=== PATIENT | male | born 1965 | race African-American/Black ===

== ENCOUNTER 2017-07-09 14:53 | Observation (INO) ==
[2017-07-09] MEDS ORDERED: ASPIRIN 325 MG TABLET PO STA (15:02)
[2017-07-09] MEDS ORDERED: NITROGLYCERIN SL 0.4 MG TABLET SL PRN (15:02)
[2017-07-09] MEDS ORDERED: ENOXAPARIN 100 MG/ML SYRINGE SUBCUT STA (15:02)
[2017-07-09] MEDS ORDERED: ASPIRIN 325 MG TABLET ONE (15:09)
[2017-07-09] MEDS ORDERED: ENOXAPARIN 100 MG/ML SYRINGE SUBCUT ONE (15:09)
[2017-07-09 15:35] LABS: Basophils % 0.4 % (0.0-0.8); Eosinophils # 0.2 10*3/uL (0.0-0.87); Hematocrit 42.2 VOL% (42.0-52.0); Hemoglobin 14.6 GM/DL (14.0-18.0); Immature Granulocytes % 0.4 %; Immature Granulocytes Absolute 0.04 #; Lymphocytes % 29.6 % (21.2-54.2); Mean Corpuscular HGB Conc 34.6 GM/DL (32-36); Mean Corpuscular Hemoglobin 28 PG (27-34); Mean Corpuscular Volume 80.5 FL (87-102); Mean Platelet Volume 10.3 FL (9.6-12.0); Monocytes # 1.2 10*3/uL (0.11-0.8); Monocytes % 11.3 % (1.7-12.7); Neutrophils # 5.7 10*3/uL (1.4-7.4); Neutrophils % 56.3 % (38.7-73.9); Platelet Count 252 T/CUMM (130-400); Red Blood Count 5.24 MC/CUMM (3.8-5.5); Red Cell Distribution Width 13.1 % (9.3-17.3); White Blood Count 10.2 T/CUMM (4-12)
--- NOTE | 2017-07-09 15:43 | XRay Report ---
XR chest 1V portable Indication: Chest pain. Comparison: Chest x-ray April 09, 2017 Technique: Portable AP chest was performed. Findings: Heart size is borderline. This finding is likely accentuated by the degree of inspiration and AP technique. Pulmonary vasculature appears within normal limits. No significant abnormality of the mediastinal contours demonstrated. Lungs are clear. Bones and soft tissues demonstrate no significant abnormalities. Impression: 1. No evidence of acute pathology. Borderline cardiomegaly. 07/09/2017 3:39 PM PROCEDURE INTERPRETED AT [facility] DEPARTMENT OF RADIOLOGY Final Report Signed by: Dr. Timbo Ferris
[2017-07-09 15:45] LABS: Albumin 3.9 G/DL (3.4-5.0); Bilirubin,Total 0.7 MG/DL (0.2-1.0); Calcium 9.1 MG/DL (8.5-10.1); Magnesium 2.2 MG/DL (1.8-2.4); Osmolality,Calculated 279.7 MOS/KG (273-304)
--- NOTE | 2017-07-09 15:55 | Emergency Department Note ---
Xavier Ordoñez Hilary, am scribing for, and in the presence of, Miles Son MD 15:14. Huy Ordoñez Phillip K, MD, personally performed the services described in this documentation, ascribed by Emily Park in my presence, and it is both accurate and complete [id number] . Arrival - Arrival Chief Complaint: Chest Pain Stated Complaint: chest pain (blockage in artery) ED Nursing Triage Note: Pt c/o chest pain with some SOB started this am. Mode of Arrival: Ambulatory Limitations: No Limitations Source: Patient, RN Notes Reviewed Time Seen by Provider: 07/09/17 15:01 - History of Present Illness HPI Narrative: Pt is a 51 y/o male presenting to the ED with c/o chest pain which onset yesterday intermittently but continuous today. He reports exerting himself yesterday. Pt confirms non radiating sharp chest pain, SOB, nausea (yesterday) but denies diaphoresis. He also states that he has "clogged arteries" and is on medication for it and had a stress test 4 months. Pt has a PMHx of HTN, Dyslipidemia and NIDDM. No other complaints or problems stated in the ED. patient had an abnormal stress thallium here 3-4 months ago while hospitalized for chest pain. He has never had a heart catheterization. Patient is pain- free at the present time. Patient does have some EKG Changes inferiorly which he did not have previously. Patient had chest pain while having sex yesterday. Onset (ago): hour(s) Consistency: constant, intermittent Severity: moderate Severity scale (1-10): 3 Quality: sharp Allergies/Adverse Reactions: Allergies Allergy/AdvReac Type Severity Reaction Status Date / Time No Known Allergies Allergy Verified 12/09/16 17:44 Home Medications: Home Medications Medication Instructions Recorded Confirmed Type Amlodipine Besylate 10 mg PO DAILY 06/13/16 02/13/17 History Aspirin EC Tab 81 mg PO DAILY 06/13/16 02/13/17 History FLUoxetine [PROzac] 20 mg PO QAM 06/13/16 02/13/17 History Glimepiride 4 mg PO BID 06/13/16 02/13/17 History Metformin HCl 1,000 mg PO BID W/MEALS 06/13/16 02/13/17 History Atorvastatin [Lipitor] 40 mg PO BEDTIME 12/09/16 02/13/17 History Linagliptin [Tradjenta] 5 mg PO DAILY 12/09/16 02/13/17 History Isosorbide Mononitrate [Imdur] 30 mg PO DAILY #30 tablet 02/15/17 Rx Metoprolol Tartrate Tab [Lopressor 50 mg PO BID #60 tablet 02/15/17 Rx Tab] Indomethacin Cap [Indocin Cap] 25 mg PO TID #30 capsule 04/09/17 Rx predniSONE TAB [PredniSONE] 20 mg PO DAILY #15 tablet 04/09/17 Rx Review of System - Review of System 12 point system: reviewed and no additional remarkable complaints except as stated - Review of System Constitutional: Absent: diaphoresis, fever Respiratory: Present: respiratory distress (SOB) Cardiovascular: Present: chest pain Gastrointestinal: Present: nausea Medical,Surgical,& Family Hx - Medical History Cardio: History of: Hypertension HEENT: History of: Eye Problem (Glaucoma) Endocrine: History of: Diabetes Mellitus (NIDDM), Dyslipidemia - Surgical History Cardiac Surgeries: Patient Denies: Cardiac Catheterization Thoracic Surgeries: Patient denies;: Organ Transplant, Lobectomy Neurologic Surgeries: Patient denies: Neurologic Surgery - Family History Family History: Reports;: Family Cancer, Family Diabetes, Family Hypertension - Social History Smoking Status: Never smoker Marital Status: Lives With:: Spouse Functional capacity: independent ambulation Exam Vital Signs: Vital Signs Temperature 97.4 F L 07/09/17 15:01 Pulse Rate 75 07/09/17 15:01 Respiratory Rate 16 07/09/17 15:01 Blood Pressure 125/86 07/09/17 15:01 O2 Sat by Pulse Oximetry 100 07/09/17 15:19 - General General appearance: alert, in no apparent distress - Head Head exam: Present: atraumatic, normocephalic - Eye Eye exam: Present: normal appearance, PERRL, EOMI - ENT ENT exam: Present: mucous membranes moist, TM's normal bilaterally. Absent: mucous membranes dry - Neck Neck exam: Present: full ROM, trachea midline. Absent: tenderness - Chest Chest inspection: Present: symmetric chest wall rise, tenderness (no chestwall tenderness but tenderness in epigastric area) - Respiratory Respiratory exam: Present: normal lung sounds bilaterally. Absent: respiratory distress - Cardiovascular Cardiovascular exam: Present: regular rate, normal rhythm, normal heart sounds. Absent: murmur, rubs, gallop - Abdominal Exam Abdominal exam: Present: soft, normal bowel sounds. Absent: distention, tenderness - Extremities Exam Extremities exam: Present: full ROM. Absent: tenderness - Back Exam Back exam: Present: full ROM. Absent: tenderness - Neurological Exam Neurological exam: Present: alert, oriented X3, CN II-XII intact. Absent: motor sensory deficit - Psychiatric Psychiatric exam: Present: normal affect, normal mood - Skin Skin exam: Present: warm, dry, intact, normal color. Absent: rash Course Course Narrative: Patient discussed with Dr. Teresa who will admit for further evaluation. Results - Labs CBC & BMP: 07/09/17 15:19 07/09/17 15:19 Lab Results: I have reviewed the patients labs Labs: Laboratory Tests 07/09/17 07/09/17 15:19 15:19 WBC 10.2 RBC 5.24 Hgb 14.6 Hct 42.2 MCV 80.5 L Plt Count 252 [place] # (Auto) 1.2 H Sodium 138 Potassium 4.0 Chloride 104 Carbon Dioxide 27 BUN 20 H Glucose 137 H AST 38 H ALT 110 H - EKG EKG results: interpreted by ERMD, sinus rhythm (Inferior ST-T changes) - Diagnostic Findings Procedure: Chest x-ray: report reviewed by me (No evidence of acute pathology. Borderline cardiomegaly) Disposition Clinical Impression: Chest pain, Unstable angina pectoris Case discussed with: patient, patient's family Disposition: Still a Patient Condition: Guarded Additional Instructions: Admit to cardiology.
[2017-07-09] MEDS ORDERED: ONDANSETRON 4 MG/2 ML VIAL IV PRN (17:28)
[2017-07-09] MEDS ORDERED: POTASSIUM CHLORIDE 20 MEQ TABLET PO PRN (17:28)
[2017-07-09] MEDS ORDERED: BISACODYL 5 MG TABLET PO PRN (17:28)
[2017-07-09] MEDS ORDERED: ZALEPLON 5 MG CAPSULE PO PRN (17:28)
[2017-07-09] MEDS ORDERED: MAGNESIUM SULF RIDER 2 GM in PREMIX 1 EACH IV PRN (17:28)
[2017-07-09 19:18] LABS: PT Patient Result 10.9 SECS
[2017-07-09] MEDS: ATORVASTATIN 40 MG TABLET PO SCH (21:42)
[2017-07-09] MEDS: INSULIN ASPART PROTAMINE/ASPART 70/30 100 UNIT/ML SUBCUT SCH (21:42)
[2017-07-09] MEDS: METOPROLOL TARTRATE 50 MG TABLET PO SCH (21:42)
[2017-07-09] MEDS: NITROGLYCERIN 2% OINT 1 INCH/GM PACK TOP SCH (21:48)
[2017-07-10] MEDS: NITROGLYCERIN 2% OINT 1 INCH/GM PACK TOP SCH ×3 (01:44→14:50)
--- NOTE | 2017-07-10 06:05 | EKG Report ---
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
--- NOTE | 2017-07-10 08:05 | Cardiology History & Physical ---
Assessment and Plan - Time spent with patient Time spent with patient: Greater than 30 minutes (1) Chest pain Status: Acute Assessment and plan: SEE PLAN OF CARE LISTED BELOW. Current Visit: Yes (2) DM2 (diabetes mellitus, type 2) Status: Chronic Assessment and plan: SEE PLAN OF CARE LISTED BELOW. 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 Current Visit: No (5) Hyperlipidemia Status: Chronic Assessment and plan: SEE PLAN OF CARE LISTED BELOW. Current Visit: No (6) Obesity Status: Chronic Assessment and plan: SEE PLAN OF CARE LISTED BELOW. 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 Stuart is a 51 year old male without known coronary artery disease, routinely followed by Dr. Alarcon. Patient has cardiac risk factors significant for hypertension, diabetes, dyslipidemia, former drug abuser (cocaine), obesity , sedentary lifestyle and family history of coronary artery disease (father). Patient was just hospitalized in February 2017. Patient underwent nuclear cardiac stress test at that time. Stress testing results were clinically positive, electrically negative. Moderate risk test. Normal LV size with wall motion abnormalities with preserved systolic function. Myocardial ischemia in the anterior cervical/apical region. No ACS at that time. Patient was discharged home, medically managed. Patient has never went underwent heart catheterization. Patient was last seen in the cardiology clinic July 01, 2017. He was a symptomatic at that time. Patient presented to [facility] yesterday with complaints of chest pain. Patient reports that his chest discomfort began Friday after having intercourse. He describes his pain as a chest tightness located midsternally. Nonradiating. Although, he does report left hand numbness at times. Unsure if this is related to his chest discomfort or not. This lasted less than 20 minutes. Relieved with rest. Associated with shortness of breath and mild nausea. Friday morning he developed chest pain again. He describes this type pain as a shooting pain. At that point, he felt that he should be further evaluated in the emergency department. Upon arrival to the ER , he was no longer experiencing chest pain. He was not given nitroglycerin per his report. He is unable to identify any specific alleviating or aggravating factors. He does report that it appears that his chest pain was triggered with exertion both instances. Patient has been admitted under cardiology's service. Housed on the telemetry unit. Patient was seen and examined on the telemetry unit. He is now without complaints of chest pain, heaviness and tightness. Chest x-ray stable. Cardiac biomarkers negative 3. EKG is abnormal. T-wave inversions noted in inferior leads. Anticipating heart catheterization today. I will keep patient n.p.o. Continue to cycle cardiac biomarkers and EKGs. Patient did receive therapeutic dose of Lovenox and full dose aspirin in the emergency department. We will continue beta-blockade, aspirin, lipid-lowering agent and Imdur. I will further discuss with Dr. Teresa and Dr. Bajwa. Further recommendations to follow. IMPRESSION AND PLAN 1. CHEST PAIN - Patient's chest pain is concerning for angina. Now chest pain -free. Patient did have abnormal stress test back in February 2017. He has been medically managed since that time. Cardiac biomarkers have been negative 3. EKG is abnormal. T-wave inversions noted in inferior leads. Anticipating heart catheterization today. I will keep patient n.p.o. Continue to cycle cardiac biomarkers and EKGs. Patient did receive therapeutic dose of Lovenox and full dose aspirin in the emergency department. We will continue beta- blockade, aspirin, lipid-lowering agent and Imdur. I will further discuss with Dr. Teresa and Aydee. Further recommendations to follow. 2. HYPERTENSION - Under well control. Continue current plan of care. 3. DYSLIPIDEMIA - Continue lipid-lowering agent. LDL 74. 4. FORMER DRUG ABUSER - Patient reports that he has done cocaine in the past. He reports that he has been in remission now for a year and a half. I will check a urine drug screen to verify. 5. DIABETES - I have added sliding scale insulin. Check blood sugars before meals and at bedtime. 6. OBESITY - Counseled patient on importance of weight loss with dietary restriction and regular exercise. Home Medications Medication Instructions Recorded Confirmed Type Amlodipine Besylate 10 mg PO QAM 06/13/16 07/09/17 History Aspirin EC Tab 81 mg PO QAM 06/13/16 07/09/17 History FLUoxetine [PROzac] 20 mg PO QAM 06/13/16 07/09/17 History Atorvastatin [Lipitor] 40 mg PO BEDTIME 12/09/16 07/09/17 History Metoprolol Tartrate Tab [Lopressor 50 mg PO BID #60 tablet 02/15/17 07/09/17 Rx Tab] Insulin Aspart Prot/Insuln Asp 60 units SUBCUT BID 07/09/17 07/09/17 History [NovoLOG Mix 70-30 FlexPen] Isosorbide Mononitrate [Isosorbide 30 mg PO QAM 07/09/17 07/09/17 History Mononitrate ER] Allergies Allergy/AdvReac Type Severity Reaction Status Date / Time No Known Allergies Allergy Verified 12/09/16 17:44 - Constitutional Constitutional: Present: as per HPI. Absent: chills, daytime sleepiness, excessive sweating, fatigue, fever(s), frequent falls, weakness, weight gain, weight loss - Cardiovascular Cardiovascular: Present: as per HPI, chest pain with activity, dyspnea, radiating jaw, neck or arm pain. Absent: claudication, diaphoresis, dyspnea on exertion, edema, lightheadedness, orthopnea, palpitations, PND - Respiratory Respiratory: Present: as per HPI, dyspnea. Absent: cough, hemoptysis, dyspnea on exertion, wheezing, snoring, pain on inspiration, change in phlegm color - Gastrointestinal Gastrointestinal: Present: as per HPI, nausea. Absent: heartburn, hematemesis, hematochezia, loose stools, melena, vomiting - Neurological Neurological: Absent: abnormal gait, abnormal speech, behavioral changes, dizziness, focal weakness, syncope Medical,Surgical,& Family Hx - Medical History Cardio: History of: Hypertension HEENT: History of: Eye Problem (Glaucoma) Endocrine: History of: Diabetes Mellitus (NIDDM), Dyslipidemia Rheumatology: History of;: Gout (Finger) Musculoskeletal: No history of: Amputation - Surgical History Cardiac Surgeries: Patient Denies: Cardiac Catheterization Thoracic Surgeries: Patient denies;: Organ Transplant, Lobectomy Neurologic Surgeries: Patient denies: Neurologic Surgery HEENT Surgeries: Patient denies: Tonsilectomy & Adenoidectomy - Family History Family History: Reports;: Family Cancer, Family Diabetes, Family Heart Disease, Family Hypertension - Social History Smoking Status: Former smoker Frequency of Alcohol Use: None Type of Drug Use: None Marital Status: Lives With:: Spouse Functional capacity: independent ambulation Cardiology Physical Exam - Constitutional Vitals: Vital Signs Temp Pulse Resp BP Pulse Ox 97.7 F 64 20 119/78 97 07/10/17 07:55 07/10/17 07:55 07/10/17 07:55 07/10/17 07:55 07/10/17 07:55 Intake and Output 07/09/17 07/10/17 07/10/17 22:59 06:59 14:59 Intake Total 480 / 480 720 / 720 Output Total 500 / 500 Balance 480 / 480 220 / 220 Intake: Oral 480 / 480 720 / 720 Output: Urine 500 / 500 Other: Voiding Method Toilet Toilet # Voids 1 # Bowel Movements 0 Weight 228 lb 4 oz 229 lb Exam: General: Appears well with no apparent distress. Pleasant and cooperative. Appears comfortable. HEENT: PERRL, normocephalic, atraumatic. Mucous membranes moist. No jaundice noted. Conjunctiva moist and clear, sclerae anicteric Neck: No JVD/HJR, no thyromegaly or lymphadenopathy noted. No carotid bruit appreciated Cardiac: Regular rate and rhythm. No murmur rub or gallop. Lungs: Clear to auscultation without accessory muscle use to assist the respiratory pattern. Not requiring oxygen. Abdomen: Soft, bowel sounds normoactive. Nontender and nondistended. No abdominal bruit or thrill noted. No masses noted. Extremities: No clubbing, cyanosis noted. No edema noted. Upper extremity pulses 2+. Lower extremity pulses 2+. Capillary refill less than 3 seconds. Skin: No unusual lesions or rashes. No skin breakdown appreciated. Neuro: Awake, alert and oriented 3. Moves all extremities well without hemiparesis or paralysis. No essential tremor is appreciated. Result/EKG - Labs CBC & BMP: 07/09/17 15:19 07/09/17 15:19 Lab Results: I have reviewed the past 24 hour labs Labs: Laboratory Results - last 24 hr 07/09/17 07/09/17 07/09/17 15:19 15:19 15:19 WBC 10.2 RBC 5.24 Hgb 14.6 Hct 42.2 MCV 80.5 L MCH 28 MCHC 34.6 RDW 13.1 Plt Count 252 MPV 10.3 Neut % (Auto) 56.3 Lymph % (Auto) 29.6 [place] % (Auto) 11.3 Eos % (Auto) 2.0 Baso % (Auto) 0.4 Neut # (Auto) 5.7 Lymph # (Auto) 3.0 [place] # (Auto) 1.2 H Eos # (Auto) 0.2 Baso # (Auto) 0.0 Immature Gran % 0.4 Nucleated RBC % 0.0 Immature Gran # 0.04 Nucleated RBCs # 0.00 Immature Plt Fraction 0.0 INR PT Patient/Control Mix Sodium 138 Potassium 4.0 Chloride 104 Carbon Dioxide 27 Anion Gap 11.0 BUN 20 H Creatinine 1.10 GFR Calculation 111 BUN/Creatinine Ratio 18.00 Glucose 137 H POC Glucose Calculated Osmolality 279.7 Calcium 9.1 Magnesium 2.2 Total Bilirubin 0.70 AST 38 H ALT 110 H Alkaline Phosphatase 83 Troponin I < 0.015 Total Protein 7.0 Albumin 3.9 Globulin 3.1 Albumin/Globulin Ratio 1.2 07/09/17 07/09/17 07/09/17 19:05 19:05 21:04 WBC RBC Hgb Hct MCV MCH MCHC RDW Plt Count MPV Neut % (Auto) Lymph % (Auto) Webb % (Auto) Eos % (Auto) Baso % (Auto) Neut # (Auto) Lymph # (Auto) Webb # (Auto) Eos # (Auto) Baso # (Auto) Immature Gran % Nucleated RBC % Immature Gran # Nucleated RBCs # Immature Plt Fraction INR 1.0 PT Patient/Control Mix 10.9 Sodium Potassium Chloride Carbon Dioxide Anion Gap BUN Creatinine GFR Calculation BUN/Creatinine Ratio Glucose POC Glucose 230 H Calculated Osmolality Calcium Magnesium Total Bilirubin AST ALT Alkaline Phosphatase Troponin I < 0.015 Total Protein Albumin Globulin Albumin/Globulin Ratio 07/09/17 07/10/17 07/10/17 21:16 02:09 07:10 WBC RBC Hgb Hct MCV MCH MCHC RDW Plt Count MPV Neut % (Auto) Lymph % (Auto) Webb % (Auto) Eos % (Auto) Baso % (Auto) Neut # (Auto) Lymph # (Auto) Webb # (Auto) Eos # (Auto) Baso # (Auto) Immature Gran % Nucleated RBC % Immature Gran # Nucleated RBCs # Immature Plt Fraction INR PT Patient/Control Mix Sodium Potassium Chloride Carbon Dioxide Anion Gap BUN Creatinine GFR Calculation BUN/Creatinine Ratio Glucose POC Glucose 65 L 230 H Calculated Osmolality Calcium Magnesium Total Bilirubin AST ALT Alkaline Phosphatase Troponin I < 0.015 Total Protein Albumin Globulin Albumin/Globulin Ratio - EKG EKG results: interpreted by me, sinus rhythm (T-wave inversions in inferior leads)
[2017-07-10 08:38] LABS: Basophils # 0.1 10*3/uL (0.0-0.2); Basophils % 0.6 % (0.0-0.8); Eosinophils # 0.2 10*3/uL (0.0-0.87); Eosinophils % 1.8 % (0.00-10.9); Hematocrit 42.3 VOL% (42.0-52.0); Hemoglobin 14.8 GM/DL (14.0-18.0); Immature Granulocytes % 0.2 %; Immature Granulocytes Absolute 0.02 #; Lymphocytes # 2.7 10*3/uL (1.4-4.0); Lymphocytes % 32.4 % (21.2-54.2); Mean Corpuscular Hemoglobin 28 PG (27-34); Mean Corpuscular Volume 80.7 FL (87-102); Mean Platelet Volume 10.6 FL (9.6-12.0); Monocytes # 1.1 10*3/uL (0.11-0.8); Monocytes % 12.7 % (1.7-12.7); Neutrophils # 4.3 10*3/uL (1.4-7.4); Neutrophils % 52.3 % (38.7-73.9); Platelet Count 231 T/CUMM (130-400); Red Blood Count 5.24 MC/CUMM (3.8-5.5); Red Cell Distribution Width 13.2 % (9.3-17.3); White Blood Count 8.3 T/CUMM (4-12)
[2017-07-10 08:54] LABS: Barbiturates Screen,Urine Negative (Negative); Benzodiazepines Screen,Urine Negative (Negative); Cannabinoid Screen,Urine Negative (Negative); Opiate Screen,Urine Negative (Negative); Phencyclidine Screen,Urine Negative (Negative)
[2017-07-10 09:09] LABS: Risk Ratio 3.53
[2017-07-10] MEDS ORDERED: DIAZEPAM 5 MG TABLET PO ONE (09:43)
[2017-07-10] MEDS ORDERED: MAGNESIUM SULF RIDER 2 GM in PREMIX 1 EACH IV PRN (09:43)
[2017-07-10] MEDS ORDERED: POTASSIUM CHLORIDE RIDER 10 MEQ in PREMIX 1 EACH IV PRN (09:43)
[2017-07-10] MEDS ORDERED: diphenhydrAMINE CAP 25 MG CAPSULE PO ONE (09:43)
[2017-07-10 10:15] LABS: Calcium 8.9 MG/DL (8.5-10.1); Magnesium 2.3 MG/DL (1.8-2.4); Osmolality,Calculated 282.7 MOS/KG (273-304); Potassium 4.1 MMOL/L (3.5-5.1)
[2017-07-10] MEDS: ASPIRIN EC 81 MG TABLET PO SCH (10:25)
[2017-07-10] MEDS: FLUoxetine 20 MG CAPSULE PO SCH (10:25)
[2017-07-10] MEDS: amLODIPine 10 MG TABLET PO SCH (10:25)
[2017-07-10] MEDS: ISOSORBIDE MONONITRATE 30 MG TABLET PO SCH (10:25)
[2017-07-10] MEDS: METOPROLOL TARTRATE 50 MG TABLET PO SCH ×2 (10:25→21:12)
[2017-07-10] MEDS: INSULIN ASPART PROTAMINE/ASPART 70/30 100 UNIT/ML SUBCUT SCH ×2 (10:26→21:12)
[2017-07-10 10:39] LABS: Basophils % 0.5 % (0.0-0.8); Eosinophils # 0.1 10*3/uL (0.0-0.87); Eosinophils % 1.7 % (0.00-10.9); Hematocrit 43.5 VOL% (42.0-52.0); Hemoglobin 14.9 GM/DL (14.0-18.0); Immature Granulocytes % 0.4 %; Immature Granulocytes Absolute 0.03 #; Lymphocytes # 2.7 10*3/uL (1.4-4.0); Lymphocytes % 34.2 % (21.2-54.2); Mean Corpuscular HGB Conc 34.3 GM/DL (32-36); Mean Corpuscular Hemoglobin 28 PG (27-34); Mean Corpuscular Volume 81.2 FL (87-102); Mean Platelet Volume 10.5 FL (9.6-12.0); Monocytes % 12.1 % (1.7-12.7); Neutrophils % 51.1 % (38.7-73.9); Platelet Count 233 T/CUMM (130-400); Red Blood Count 5.36 MC/CUMM (3.8-5.5); Red Cell Distribution Width 13.2 % (9.3-17.3); White Blood Count 7.9 T/CUMM (4-12)
[2017-07-10] MEDS ORDERED: HEPARIN/NACL 0.9% 2 UNITS/ML 1,000 ML IV ONE (10:47)
[2017-07-10] MEDS ORDERED: LIDOCAINE 1% 20 ML VIAL ONE (10:47)
[2017-07-10] MEDS ORDERED: MIDAZOLAM 2 MG/2 ML VIAL ONE (11:07)
[2017-07-10] MEDS ORDERED: HYDROmorphone 2 MG/1 ML VIAL ONE (11:07)
--- NOTE | 2017-07-10 11:09 | History and Physical Update ---
Sedation H&P Update - History and Physical H&P was reviewed, the patient examined and there: are no changes in the patients condition since last H&P was completed. - Dictation Physical: refer to H&P completed by admitting physician - Physical Exam Mental Status: alert and oriented Heart: regular rate and rhythm Lung: clear to auscultation Abdomen: within normal limits Vitals: within normal limits - Sedation Plan for Sedation: moderate Patient Consent: Procedure disscussed with patient and patinet has consented., Risks and benefits were discussed with patient,including infection,, bleeding, injury to surrounding structures, seizure, temporary nerve, Patient understands and accepts potential risks/benefits and agrees to, proceed. ASA Class: II Airway Assessment: Class II: Soft palate, uvula, fauces visible
[2017-07-10] MEDS: INSULIN REGULAR 100 UNIT/ML SUBCUT SCH ×3 (11:49→21:13)
[2017-07-10] MEDS: SODIUM CHLORIDE 0.45% 1,000 ML IV SCH (11:49)
--- NOTE | 2017-07-10 12:54 | Cardiac Catheterization ---
Date of Procedure:: 07/10/17 Pre-op Diagnosis: Chest pain Post-op diagnosis: other (Noncardiac chest pain) Procedure: Cardiac catheterization procedure note #1 left heart catheterization #2 selective coronary angiography #3 left ventriculography Omnipaque was used for the procedure Description of procedure Following sterile preparation draping of the right groin local anesthesia was achieved by infiltration with 1% Xylocaine. Using a Cook needle the right femoral artery was cannulated and a #6 sheath was inserted. A 6 [place] pigtail catheter was introduced and advanced retrograde across aortic valve into the left ventricle and the end-diastolic pressure was recorded. Left ventriculography was performed the BOOTH projection using 24 cc of contrast. A pullback recording was made across aortic valve. The pigtail catheter change for a 6 Mexican left Alexandra catheter and left coronary angiography was performed in several BOOTH and SPANISH projections. The catheter change for a 6 Mexican right Amplatz catheter and right coronary angiography was performed in the SPANISH projection only. The catheter and sheath were then removed and the femoral arteriotomy site was sealed percutaneously minx closure device with prompt cessation of bleeding and prompt return of femoral and foot pulses. No complications ensued. The patient transferred to telemetry in stable condition. Hemodynamic data Aortic pressure 99/56 mean of 76 Left ventricle 99/8 Selective coronary angiography The left main trunk is large and widely patent and trifurcates. The LAD is a large vessel wraps around the apex. It has mild proximal irregularities only. The flow is a little sluggish. The large first diagonal branch is widely patent. The intermediate branch is widely patent. The circumflex system has mild irregularities only. The right coronary artery is a large dominant vessel that is widely patent throughout its course and has mild luminal irregularities only. Left ventriculography Ejection fraction 60%. No wall motion abnormalities. No mitral regurgitation. Conclusions LVEDP 8 Ejection fraction 60% with no wall motion abnormalities No mitral regurgitation No aortic valve gradient Widely patent coronary arteries with mild luminal irregularities only. Disposition The patient has widely patent coronary arteries with mild luminal irregularities only and preserved ventricular function ejection fraction 60%. His current chest pain syndrome is not cardiac in nature. Continued medical therapy and risk factor modification recommended. Cardioprotection with aspirin and statin therapy encouraged. Continue normal saline hydration. Implants: No implants Anesthesia: moderate conscious sedation Surgeon / Physician: Narciso Bajwa Estimated blood loss: minimal Condition: stable Disposition: floor - Medications / Follow-up
[2017-07-10] MEDS ORDERED: ACETAMINOPHEN 325 MG TABLET PO PRN (12:55)
--- NOTE | 2017-07-10 16:27 | Discharge Summary ---
<Verenice Echeverria E - Last Filed: 07/10/17 17:16> Hospital Course - Hospital Course Hospital Course: Consumer Sales Representative: Dr. Covarrubias PCP: Lianna Coley NP JULY 10, 2017 DATE OF ADMISSION: Mr. Stuart is a 51 year old male without known coronary artery disease, routinely followed by Dr. Covarrubias. Patient has cardiac risk factors significant for hypertension, diabetes, dyslipidemia, former drug abuser (cocaine), obesity, sedentary lifestyle and family history of coronary artery disease (father). Patient was just hospitalized in February 2017. Patient underwent nuclear cardiac stress test at that time. Stress testing results were clinically positive, electrically negative. Moderate risk test. Normal LV size with wall motion abnormalities with preserved systolic function. Myocardial ischemia in the anterior cervical/apical region. No ACS at that time. Patient was discharged home, medically managed. Patient has never went underwent heart catheterization. Patient was last seen in the cardiology clinic July 01, 2017. He was a symptomatic at that time. Patient presented to [facility] with complaints of chest pain. Patient's chest pain was concerning for angina. Cardiac biomarkers negative. EKG abnormal, revealed T-wave inversion in inferior leads. Patient underwent cardiac catheterization July 10, [address] Ifeanyi Bajwa with the following impressions noted: IMPRESSIONS LVEDP 8 Ejection fraction 60% with no wall motion abnormalities No mitral regurgitation No aortic valve gradient Widely patent coronary arteries with mild luminal irregularities only. DISPOSITION The patient has widely patent coronary arteries with mild luminal irregularities only and preserved ventricular function ejection fraction 60%. His current chest pain syndrome is not cardiac in nature. Continued medical therapy and risk factor modification recommended. Cardioprotection with aspirin and statin therapy encouraged. Continue normal saline hydration. 2016: Overnight, patient has done well. He did have mild chest tightness overnight associated with shortness of breath. Patient underwent VQ lung scan this morning which was normal. Low probability for pulmonary embolism. Labs are stable. Patient has been ambulating without difficulty. Right groin soft, free of hematoma or bruit. Distal pulses 2+. At this point, I suspect that patient's chest tightness may be GI in nature. I will discharge patient home with PPI. Give him an outpatient appointment with Dr. Sheldon. I have discussed this with him and he is agreeable to this. Lipid panel was checked this hospitalization. LDL stable at 80. Continue lipid-lowering agent. Having felt the patient is met maximal medical therapy, patient is being discharged home in stable condition. He will be given a 2-3 week follow- up with Dr. Covarruibas. At that visit the following will be obtained: EKG, BMP, magnesium, CBC. He also follow-up with Dr. Sheldon in 1-2 weeks for outpatient GI evaluation. He will also be given a follow-up appointment with Lianna Coley NP for management of his diabetes. Patient will resume all of his preadmission medications including the following: Aspirin 81 mg orally daily Atorvastatin 40 mg orally each evening Amlodipine 10 mg orally daily Metoprolol tartrate 50 mg orally twice daily Isosorbide mononitrate 30 mg orally each more Prozac 20 mg orally each morning He will resume his insulin regimen - Time spent with patient Time with patient DS: Greater than 30 minutes Diagnosis - Discharge Diagnosis (1) Chest pain Status: Resolved (2) Obesity Status: Chronic (3) DM2 (diabetes mellitus, type 2) Status: Chronic (4) Former consumption of alcohol Status: Chronic (5) HTN (hypertension) Status: Chronic (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 BMP , Mg, CBC EKG) Narciso Sheldon MD [Physician] - 1 Week (Outpatient GI evaluation) Lianna Coley NP [[facility]] - 1 Month Discharge Plan - Discharge Data Disposition: Disch To Home/Self Care Condition at Discharge: Stable Discharge Diet: heart healthy Activity: other (Post cath expectations) Hygiene: other (Post cath expectations) Weight Bearing at Discharge: other (Post cath expectations) Driving: other (Post cath expectations) Contact your physician if you experience:: fever over 101, Difficulty voiding, Redness or swelling, Nausea/Vomiting, Shortness of breath, Bleeding, pain uncontrolled by pain medications - Discharge Medications New Pantoprazole Tab [Protonix Tab] 40 mg PO DAILY #30 tablet Continue Amlodipine Besylate 10 mg PO QAM FLUoxetine [PROzac] 20 mg PO QAM Aspirin EC Tab 81 mg PO QAM Isosorbide Mononitrate [Isosorbide Mononitrate ER] 30 mg PO QAM Atorvastatin [Lipitor] 40 mg PO BEDTIME Metoprolol Tartrate Tab [Lopressor Tab] 50 mg PO BID #60 tablet Insulin Aspart Prot/Insuln Asp [NovoLOG Mix 70-30 FlexPen] 60 units SUBCUT BID - Follow Up or Referral Follow Up: Gilson Covarrubias MD [Physician] - 07/31/17 3:00 pm (F/U appointment 2-3 weeks. BMP , Mg, CBC EKG) Narciso Sheldon MD [Physician] - 1 Week (Outpatient GI evaluation) Coley,Lianna Bauer NP [[facility]] - 1 Month - Forms/Instructions Instructions: Coronary Artery Disease (GEN), Heart Healthy Diet (GEN) Exam - Constitutional Vitals: Period Temp Pulse Resp BP Sys/Raoms Pulse Ox Last 24 Hr 97.2 F-98.0 F 59-75 16-20 77-129/48-75 91-98 Exam: General: [Appears well with no apparent distress.] [Pleasant and cooperative. ] [Appears comfortable.] HEENT: [PERRL, normocephalic, atraumatic. Mucous membranes moist. No jaundice noted. Conjunctiva moist and clear, sclerae anicteric] Neck: No JVD/HJR, no thyromegaly or lymphadenopathy noted. No carotid bruit appreciated Cardiac: [Regular rate and rhythm.] [No murmur rub or gallop.] Lungs: [Clear to auscultation without accessory muscle use to assist the respiratory pattern.] Abdomen: Soft, bowel sounds normoactive. Nontender and nondistended. No abdominal bruit or thrill noted. No masses noted. Musculoskeletal: No fluid collection. Decreased range of motion is noted. Extremities: Right groin soft, free of hematoma or bruit. No clubbing, cyanosis noted. [ No edema noted.] Upper extremity pulses 2+. Lower extremity pulses 2+. Capillary refill less than 3 seconds. Skin: No unusual lesions or rashes. No skin breakdown appreciated. Neuro: Awake, alert and oriented 3. Moves all extremities well without hemiparesis or paralysis. No essential tremor is appreciated. Discharge Results Procedures and tests throughout hospitalization: Pending Orders 07/11/17 XR chest post lung scan Routine 07/11/17 09:03 CT chest PE study Routine 07/12/17 04:00 BMP w/ Mg [Basic Metabolic Panel w/Mg] IN AM CBC [Comp Blood Count Auto Diff] IN AM 07/13/17 04:00 BMP w/ Mg [Basic Metabolic Panel w/Mg] IN AM CBC [Comp Blood Count Auto Diff] IN AM Labs on day of discharge: Labs from last 24 hours 07/11/17 07/11/17 07/11/17 07:09 04:08 04:08 WBC 8.4 RBC 5.07 Hgb 14.1 Hct 41.4 L MCV 81.7 L MCH 28 MCHC 34.1 RDW 13.1 Plt Count 223 MPV 10.3 Neut % (Auto) 60.2 Lymph % (Auto) 26.7 Cascade % (Auto) 10.9 Eos % (Auto) 1.3 Baso % (Auto) 0.5 Neut # (Auto) 5.1 Lymph # (Auto) 2.3 Cascade # (Auto) 0.9 H Eos # (Auto) 0.1 Baso # (Auto) 0.0 Immature Gran % 0.4 Nucleated RBC % 0.0 Immature Gran # 0.03 Nucleated RBCs # 0.00 Immature Plt Fraction 0.0 Sodium 136 Potassium 4.2 Chloride 102 Carbon Dioxide 27 Anion Gap 11.2 BUN 17 Creatinine 1.20 GFR Calculation 101 BUN/Creatinine Ratio 14.00 Glucose 243 H POC Glucose 277 H Calculated Osmolality 281.0 Calcium 8.4 L Magnesium 2.3 07/11/17 07/10/17 07/10/17 04:08 19:18 16:50 WBC RBC Hgb Hct MCV MCH MCHC RDW Plt Count MPV Neut % (Auto) Lymph % (Auto) Cascade % (Auto) Eos % (Auto) Baso % (Auto) Neut # (Auto) Lymph # (Auto) Cascade # (Auto) Eos # (Auto) Baso # (Auto) Immature Gran % Nucleated RBC % Immature Gran # Nucleated RBCs # Immature Plt Fraction Sodium 136 Potassium 4.2 Chloride 102 Carbon Dioxide 26 Anion Gap 12.2 BUN 19 H Creatinine 1.20 GFR Calculation 101 BUN/Creatinine Ratio 15.00 Glucose 229 H POC Glucose 287 H 274 H Calculated Osmolality 280.0 Calcium 8.4 L Magnesium 07/10/17 10:14 WBC 7.9 RBC 5.36 Hgb 14.9 Hct 43.5 MCV 81.2 L MCH 28 MCHC 34.3 RDW 13.2 Plt Count 233 MPV 10.5 Neut % (Auto) 51.1 Lymph % (Auto) 34.2 Cascade % (Auto) 12.1 Eos % (Auto) 1.7 Baso % (Auto) 0.5 Neut # (Auto) 4.0 Lymph # (Auto) 2.7 Cascade # (Auto) 1.0 H Eos # (Auto) 0.1 Baso # (Auto) 0.0 Immature Gran % 0.4 Nucleated RBC % 0.0 Immature Gran # 0.03 Nucleated RBCs # 0.00 Immature Plt Fraction 0.0 Sodium Potassium Chloride Carbon Dioxide Anion Gap BUN Creatinine GFR Calculation BUN/Creatinine Ratio Glucose POC Glucose Calculated Osmolality Calcium Magnesium - Imaging and Cardiology Cardiology Procedure: report reviewed by me Procedure: Chest x-ray: report reviewed by me DS: Provider Date of admission: 07/09/17 15:52 Primary care physician: . No PCP Attending physician on admission: Rodolfo Teresa MD Consults: 07/09/17 17:27 Consult to Cardiac Rehabilitation [CONS] Routine Reason for Cardiac Rehabilitation: Risk Factor Modification Other Consult Comment: Evaluate and recommend 07/10/17 12:55 Consult to Cardiac Rehabilitation [CONS] Routine Reason for Cardiac Rehabilitation: Risk Factor Modification Other Consult Comment: Evaluate and recommend Discharging clinician: Verenice Echeverria NP Expected date of discharge: 07/11/17 <Gogo Macias - Last Filed: 07/11/17 10:52> Diagnosis - Discharge Diagnosis (1) Non-cardiac chest pain Status: Resolved (2) DM2 (diabetes mellitus, type 2) Status: Chronic (3) HTN (hypertension) Status: Chronic (4) 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
[2017-07-10] MEDS ORDERED: diphenhydrAMINE 2% CREAM 28 GM TUBE TOP PRN (17:16)
[2017-07-10] MEDS: ATORVASTATIN 40 MG TABLET PO SCH (21:12)
[2017-07-11] MEDS: SODIUM CHLORIDE 0.45% 1,000 ML IV SCH ×2 (00:16→12:23)
[2017-07-11 04:34] LABS: Basophils % 0.5 % (0.0-0.8); Eosinophils # 0.1 10*3/uL (0.0-0.87); Eosinophils % 1.3 % (0.00-10.9); Hematocrit 41.4 VOL% (42.0-52.0); Hemoglobin 14.1 GM/DL (14.0-18.0); Immature Granulocytes % 0.4 %; Immature Granulocytes Absolute 0.03 #; Lymphocytes # 2.3 10*3/uL (1.4-4.0); Lymphocytes % 26.7 % (21.2-54.2); Mean Corpuscular HGB Conc 34.1 GM/DL (32-36); Mean Corpuscular Hemoglobin 28 PG (27-34); Mean Corpuscular Volume 81.7 FL (87-102); Mean Platelet Volume 10.3 FL (9.6-12.0); Monocytes # 0.9 10*3/uL (0.11-0.8); Monocytes % 10.9 % (1.7-12.7); Neutrophils # 5.1 10*3/uL (1.4-7.4); Neutrophils % 60.2 % (38.7-73.9); Platelet Count 223 T/CUMM (130-400); Red Blood Count 5.07 MC/CUMM (3.8-5.5); Red Cell Distribution Width 13.1 % (9.3-17.3); White Blood Count 8.4 T/CUMM (4-12)
[2017-07-11 05:03] LABS: Calcium 8.4 MG/DL (8.5-10.1); Magnesium 2.3 MG/DL (1.8-2.4); Potassium 4.2 MMOL/L (3.5-5.1)
[2017-07-11 05:21] LABS: Calcium 8.4 MG/DL (8.5-10.1); Potassium 4.2 MMOL/L (3.5-5.1)
--- NOTE | 2017-07-11 07:12 | EKG Report ---
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
--- NOTE | 2017-07-11 08:52 | Event Note ---
Patient continues to complain of shortness of breath and chest tightness. Left heart catheterization yesterday revealed widely patent coronary arteries. At this point, we will proceed with VQ lung scan this morning to help rule out pulmonary embolism. If this is negative, patient will be eligible for discharge later today with outpatient GI appointment for noncardiac chest pain.
--- NOTE | 2017-07-11 09:39 | Nuclear Medicine Report ---
History: Shortness of breath. Chest pain Date: 07/11/2017 Study: Nuclear medicine ventilation/perfusion lung scan Comparison exam: Chest x-ray 07/11/2017 Following the inhalation of 40 mCi aerosolized technetium 99m DTPA, images were obtained over the lungs in 6 projections for the purpose of a ventilation study. Then, following the IV administration of 5 mCi technetium 99m MAA, images were acquired of the lungs in the same projections for the purpose of a perfusion scan. There is normal ventilation and perfusion. No significant segmental ventilation/perfusion defects are identified. Impression: Normal study PROCEDURE INTERPRETED AT [facility] DEPARTMENT OF RADIOLOGY Final Report Signed by: Dr. Buffy Smalls
[2017-07-11] MEDS: INSULIN ASPART PROTAMINE/ASPART 70/30 100 UNIT/ML SUBCUT SCH (09:52)
[2017-07-11] MEDS: INSULIN REGULAR 100 UNIT/ML SUBCUT SCH ×2 (09:53→12:34)
[2017-07-11] MEDS: amLODIPine 10 MG TABLET PO SCH (09:54)
[2017-07-11] MEDS: ISOSORBIDE MONONITRATE 30 MG TABLET PO SCH (09:54)
[2017-07-11] MEDS: ASPIRIN EC 81 MG TABLET PO SCH (09:54)
[2017-07-11] MEDS: FLUoxetine 20 MG CAPSULE PO SCH (09:54)
[2017-07-11] MEDS: METOPROLOL TARTRATE 50 MG TABLET PO SCH (09:55)
--- NOTE | 2017-07-11 11:01 | XRay Report ---
Exam: XR chest post lung scan Date: 07/11/2017 12:00 AM Comparison: 07/09/2017 Indication: Shortness of breath Technique:[Portable AP sitting chest] Findings: The heart is borderline in size with the film obtained during expiration. Minimal atelectasis at the lung bases. Unremarkable mediastinum with degenerative changes. Impression: Limited expiratory chest with minimal atelectasis at the lung bases. PROCEDURE INTERPRETED AT [facility] DEPARTMENT OF RADIOLOGY Final Report Signed by: Dr. Lianna Gooden
--- NOTE | 2017-07-11 11:26 | CT Report ---
Exam: CT chest with contrast, PE study Date: 07/11/2017 Comparison: Chest x-ray 07/11/2017 Reason: Chest pain, shortness of breath Technique: Axial images of the chest were obtained after administration of 80 cc of IV Omnipaque 350 intravenous contrast. Coronal reformatted images were also acquired. The study was performed per pulmonary embolism protocol. Total DLP: 426.40 Findings: The heart is borderline in size with cardiac fat pads. No evidence of aortic dissection or definite pulmonary. There is limited contrast in the segmental and subsegmental pulmonary arteries. Calcified nodes are identified with no significant lymphadenopathy. Fatty infiltration of the visualized liver. Degenerative changes are noted. No pleural effusions with minimal atelectasis at the lung bases. Dependent findings are noted in the lower lobes. Impression: No evidence of pulmonary embolism there is limited contrast in the segmental and subsegmental pulmonary arteries. Cardiac fat pads with fatty infiltration of the liver. Old healed granulomatous disease. Minimal atelectasis at the lung bases. This CT exam was performed using one or more the following dose reduction techniques: Automated exposure control, adjustment of the MA and/or KV according to patient size, or use of iterative reconstruction technique. PROCEDURE INTERPRETED AT [facility] DEPARTMENT OF RADIOLOGY Final Report Signed by: Dr. Lianna Gooden
[2017-07-11 12:01] VITALS: BP 123/72
== END 2017-07-11 13:22 | disposition home or self-care (01) ==
LOC: N.ED 14:53 → N.EDINP 14:53 → N.TELES 18:50
PROVIDERS: ADMIT Internal Medicine Cardiovascular Disease; ATTEND Internal Medicine Cardiovascular Disease
PROC: CLCCHCL (ICD-10-PCS; 2017-07-10 11:45)